=== PATIENT | female | born 1950 | race Two or more races ===

== ENCOUNTER 2017-06-07 15:09 | Emergency (ER) | payer BC, MEDICARE ==
[~2017-06-07] VITALS: Ht 154.9 cm; Wt 59.0 kg
[2017-06-07 15:17] VITALS: BP 140/75
[2017-06-07] MEDS ORDERED: JANUVIA25 MG ORAL (15:45)
[2017-06-07] MEDS ORDERED: METFORMIN HCL500 M1 ORAL (15:45)
[2017-06-07] MEDS ORDERED: ASPIRIN325 MG ORAL (15:45)
[2017-06-07] MEDS ORDERED: ESSENTIAL DAIL1 EAC1 PO (15:45)
[2017-06-07 15:46] LABS: BASOPHILS % (AUTO) 0.8 % (0.0-2.0); EOSINOPHILS % (AUTO) 1.1 % (0.0-3.0); HEMATOCRIT 40.4 % (37.0-47.0); HEMOGLOBIN 14.2 G/DL (12.0-16.0); LYMPHOCYTES % (AUTO) 28.7 % (20.0-45.0); MEAN CORPUSCULAR VOLUME 86 FL (80-99); MONOCYTES % (AUTO) 3.7 % (1.0-10.0); NEUTROPHILS % (AUTO) 65.6 % (45.0-75.0); PLATELET COUNT 333 K/UL (150-450); RED BLOOD COUNT 4.68 M/UL (4.20-5.40); RED CELL DISTRIBUTION WIDTH 11.9 % (11.6-14.8); WHITE BLOOD COUNT 9.6 K/UL (4.8-10.8)
--- NOTE | 2017-06-07 15:51 | Diagnostic Imaging Report ---
Indication: Dyspnea Comparison: None A single view chest radiograph was obtained. Findings: Old right clavicle fracture demonstrated. Generalized osteopenia noted. The heart is enlarged. Lungs are clear. IMPRESSION: No acute disease
[2017-06-07 15:58] LABS: ANION GAP 12 mmol/L (5-15); BLOOD UREA NITROGEN 13 mg/dL (7-18); CALCIUM 9.8 MG/DL (8.5-10.1); CARBON DIOXIDE 24 MMOL/L (21-32); CHLORIDE 102 MMOL/L (98-107); CREATININE 0.7 MG/DL (0.55-1.30); POTASSIUM 4.1 MMOL/L (3.5-5.1); SODIUM 138 MMOL/L (136-145)
[2017-06-07] MEDS ORDERED: ATORVASTATIN CA10 MG ORAL (16:05)
[2017-06-07] MEDS ORDERED: PAMELOR10 MG ORAL (16:05)
[2017-06-07] MEDS ORDERED: PRANDIN1 MG ORAL (16:05)
[2017-06-07] MEDS ORDERED: ALTACE5 MG ORAL (16:05)
[2017-06-07] MEDS ORDERED: CIPRODEX OTIC7.5 M1 LEFT EAR (16:05)
[2017-06-07] MEDS ORDERED: CYMBALTA30 MG ORAL (16:05)
[2017-06-07] MEDS ORDERED: CALCIUM MAG ZINC (16:05)
[2017-06-07] MEDS ORDERED: ALPHA LIPOIC A200 M1 PO (16:05)
[2017-06-07] MEDS ORDERED: niacin (16:05)
[2017-06-07] MEDS ORDERED: [UNRECOGNIZED DRUG - OTHER] PO (16:05)
[2017-06-07] MEDS ORDERED: METANX CAPSULE1 EACH PO (16:05)
[2017-06-07] MEDS ORDERED: MECLIZINE HCL25 MG ORAL (16:05)
[2017-06-07] MEDS ORDERED: biotin (16:05)
[2017-06-07] MEDS ORDERED: OMEPRAZOLE40 M1 ORAL (16:05)
[2017-06-07] MEDS ORDERED: JANUMET 50-1,01 EACH ORAL (16:05)
[2017-06-07 16:18] LABS: ALANINE AMINOTRANSFERASE 25 U/L (12-78); ALBUMIN 4.2 G/DL (3.4-5.0); ALBUMIN/GLOBULIN RATIO 1.2 (1.0-2.7); ALKALINE PHOSPHATASE 82 U/L (46-116); ASPARTATE AMINO TRANSFERASE 17 U/L (15-37); BILIRUBIN,TOTAL 0.3 MG/DL (0.2-1.0); CKMB 0.9 NG/ML (0.0-3.6); CREATINE KINASE 60 U/L (26-308)
[2017-06-07 16:52] LABS: APPEARANCE,URINE CLEAR; BILIRUBIN, URINE NEGATIVE (NEGATIVE); COLOR,URINE PALE YELLOW; GLUCOSE, URINE (UA) 4+ (NEGATIVE); KETONES,URINE 2+ (NEGATIVE); LEUKOCYTE ESTERASE ,URINE NEGATIVE (NEGATIVE); NITRITE,URINE NEGATIVE (NEGATIVE); PH,URINE 5 (4.5-8.0); PROTEIN,URINE 1+ (NEGATIVE); UROBILINOGEN,URINE NORMAL MG/DL (0.0-1.0)
[2017-06-07 17:18] VITALS: BP 158/75
--- NOTE | 2017-06-07 17:51 | Emergency Room Report ---
History of Present Illness General Chief Complaint: Chest Pain Source: EMS Present Illness HPI 66-year-old female presents ED for evaluation. Patient states she was having chest pain which started this morning. Pressure-like, 7/10, sudden onset. Nonradiating. Was seen at urgent care and they called 911. EMS gave patient nitroglycerin x2, aspirin. Patient states chest pain has resolved. Notes history of hypertension. States she is compliant with her medications. Admits to smoking. Denies drug use. No other aggravating relieving factors. Denies any other associated symptoms Allergies: Coded Allergies: CODEINE (Verified Allergy, Unknown, 06/07/17) SIMVASTATIN (Verified Allergy, Unknown, 06/07/17) Patient History Past Medical History: none, DM, HTN Past Surgical History: none Pertinent Family History: none Social History: Denies: smoking, alcohol use, drug use Now: No Immunizations: UTD Reviewed Nursing Documentation: PMH: Agreed, PSxH: Agreed Nursing Documentation-PMH Hx Cardiac Problems: Yes - CAD Hx Hypertension: Yes Hx Diabetes: Yes Review of Systems All Other Systems: negative except mentioned in HPI Physical Exam Vital Signs Date Time Temp Pulse Resp B/P (MAP) Pulse Ox O2 Delivery O2 Flow Rate FiO2 06/07/17 15:04 82 16 161/84 97 Room Air 06/07/17 17:18 98.8 98.8 Sp02 EP Interpretation: reviewed, normal General Appearance: no apparent distress, alert, GCS 15, non-toxic Head: normocephalic, atraumatic Eyes: bilateral eye normal inspection, bilateral eye PERRL ENT: hearing grossly normal, normal pharynx, no angioedema, normal voice Neck: full range of motion, supple/symm/no masses Respiratory: chest non-tender, lungs clear, normal breath sounds, speaking full sentences Cardiovascular #1: regular rate, rhythm, no edema Cardiovascular #2: 2+ carotid (R), 2+ carotid (L), 2+ radial (R), 2+ radial (L) , 2+ dorsalis pedis (R), 2+ dorsalis pedis (L) Gastrointestinal: normal bowel sounds, non tender, soft, non-distended, no guarding, no rebound Rectal: deferred Genitourinary: normal inspection, no CVA tenderness Musculoskeletal: back normal, gait/station normal, normal range of motion, non- tender Neurologic: alert, oriented x3, responsive, motor strength/tone normal, sensory intact, speech normal Psychiatric: judgement/insight normal, memory normal, mood/affect normal, no suicidal/homicidal ideation Reflexes: 3+ bicep (R), 3+ bicep (L), 3+ tricep (R), 3+ tricep (L), 3+ knee (R) , 3+ knee (L) Skin: normal color, no rash, warm/dry, well hydrated Lymphatic: no adenopathy Medical Decision Making Diagnostic Impression: Primary Impression: ACS (acute coronary syndrome) ER Course Hospital Course 66-year-old female presents ED complaining of chest pain, resolved with NTG Differential diagnoses include: MA/unstable angina, contusion, muscle strain, PTX, rib fracture Clinical course Patient placed on stretcher. on ekg monitor. After initial history and physical I ordered labs, EKG, chest x-ray labs reviewed- no leukocytosis, hb/hct stable, electrolytes ok, trop negative EKG - NSR, no acute ischemic changes interpreted by me Chest x-ray- no acute process Given history and presentation I believe patient should be admitted. Patient however states she does not want to stay.Patient states she wishes to go home. Understands the risks of leaving. Patient has competency to make her own decisions. Signed AMA form. I. I feel this is a highly complex case requiring extensive working including EKG/Rhythm strip, Xray/CT/US, Blood/urine lab work, repeat exams while in ED, and administration of strong opiates/narcotics for pain control, admission to hospital or close patient follow up. Diagnosis - ACS patient leaves AMA Labs Test 06/07/17 15:20 06/07/17 16:13 White Blood Count 9.6 K/UL (4.8-10.8) Red Blood Count 4.68 M/UL (4.20-5.40) Hemoglobin 14.2 G/DL (12.0-16.0) Hematocrit 40.4 % (37.0-47.0) Mean Corpuscular Volume 86 FL (80-99) Mean Corpuscular Hemoglobin 30.4 PG (27.0-31.0) Mean Corpuscular Hemoglobin Concent 35.2 G/DL (32.0-36.0) Red Cell Distribution Width 11.9 % (11.6-14.8) Platelet Count 333 K/UL (150-450) Mean Platelet Volume 7.1 FL (6.5-10.1) Neutrophils (%) (Auto) 65.6 % (45.0-75.0) Lymphocytes (%) (Auto) 28.7 % (20.0-45.0) Monocytes (%) (Auto) 3.7 % (1.0-10.0) Eosinophils (%) (Auto) 1.1 % (0.0-3.0) Basophils (%) (Auto) 0.8 % (0.0-2.0) Sodium Level 138 MMOL/L (136-145) Potassium Level 4.1 MMOL/L (3.5-5.1) Chloride Level 102 MMOL/L (98-107) Carbon Dioxide Level 24 MMOL/L (21-32) Anion Gap 12 mmol/L (5-15) Blood Urea Nitrogen 13 mg/dL (7-18) Creatinine 0.7 MG/DL (0.55-1.30) Estimat Glomerular Filtration Rate > 60 mL/min (>60) Glucose Level 114 MG/DL (74-106) Calcium Level 9.8 MG/DL (8.5-10.1) Total Bilirubin 0.3 MG/DL (0.2-1.0) Aspartate Amino Transf (AST/SGOT) 17 U/L (15-37) Alanine Aminotransferase (ALT/SGPT) 25 U/L (12-78) Alkaline Phosphatase 82 U/L (46-116) Total Creatine Kinase 60 U/L (26-308) Creatine Kinase MB 0.9 NG/ML (0.0-3.6) Creatine Kinase MB Relative Index 1.5 Troponin I 0.000 ng/mL (0.000-0.056) Pro-B-Type Natriuretic Peptide 278 pg/mL (0-125) Total Protein 7.6 G/DL (6.4-8.2) Albumin 4.2 G/DL (3.4-5.0) Globulin 3.4 g/dL Albumin/Globulin Ratio 1.2 (1.0-2.7) Urine Color Pale yellow Urine Appearance Clear Urine pH 5 (4.5-8.0) Urine Specific [place] 1.010 (1.005-1.035) Urine Protein 1+ (NEGATIVE) Urine Glucose (UA) 4+ (NEGATIVE) Urine Ketones 2+ (NEGATIVE) Urine Occult Blood 1+ (NEGATIVE) Urine Nitrite Negative (NEGATIVE) Urine Bilirubin Negative (NEGATIVE) Urine Urobilinogen Normal MG/DL (0.0-1.0) Urine Leukocyte Esterase Negative (NEGATIVE) Urine RBC 2-4 /HPF (0 - 2) Urine WBC 0-2 /HPF (0 - 2) Urine Squamous Epithelial Cells Few /LPF (NONE/OCC) Urine Bacteria Few /HPF (NONE) EKG Diagnostic Results Rate: normal Rhythm: NSR ST Segments: no acute changes ASA given to the pt in ED: No - given by ems Rhythm Strip Diag. Results EP Interpretation: yes Rhythm: NSR, no PVC's, no ectopy Chest X-Ray Diagnostic Results Chest X-Ray Diagnostic Results : Chest X-Ray Ordered: Yes # of Views/Limited/Complete: 1 View Indication: Chest Pain EP Interpretation: Yes Interpretation: no consolidation, no effusion, no pneumothorax, no acute cardiopulmonary disease Impression: No acute disease Electronically Signed by: Electronically signed by Grzegorz Vasquez MD Last Vital Signs Date Time Temp Pulse Resp B/P (MAP) Pulse Ox O2 Delivery O2 Flow Rate FiO2 06/07/17 17:18 98.8 61 23 158/75 100 Room Air 98.8 Status: improved Disposition: ADMITTED INPATIENT Condition: Serious Referrals: CLARA NOVA MD (PCP) GRZEGORZ VASQUEZ M.D. Jun 07, 2017 17:51
[2017-06-07 18:10] VITALS: BP 158/75
--- NOTE | 2017-06-08 16:25 | Cardiology Report ---
APPROVED REPORT EKG Measurement Heart [id number] Sinus bradycardia Otherwise normal ECG
== END 2017-06-07 17:40 | disposition left against medical advice (07) ==
LOC: EDBD 15:09 → EMR 16:12 → EDBEDREQ 17:31 → CANBEDREQ 17:34 → EMR 17:40
DX: R07.89 Other chest pain (principal); I24.9 Acute ischemic heart disease, unspecified; I25.10 Atherosclerotic heart disease of native coronary artery without angina pectoris; E11.9 Type 2 diabetes mellitus without complications; Z88.6 Allergy status to analgesic agent; Z88.8 Allergy status to other drugs, medicaments and biological substances
CPT/HCPCS: 36415; 71045; 80053; 81003; 82550; 82553; 83880; 84484; 85025; 93005; 99284